=== PATIENT | female | born 1995 | race Caucasian/White ===

== ENCOUNTER 2016-12-15 19:13 | Inpatient (IN) | payer SELFPAY ==
[~2016-12-15] VITALS: Ht 172.7 cm; Wt 125.4 kg
[~2016-12-15 19:13] MED LIST: [UNRECOGNIZED DRUG - REMARK]
[2016-12-15 19:50] LABS: Urine Bilirubin Negative (Negative); Urine Blood TRACE /uL (Negative); Urine Color Yellow (Yellow); Urine Glucose Normal (Normal); Urine Ketone Negative (Negative); Urine Mucus FEW (None Seen); Urine Nitrite Negative (Negative); Urine RBC 8 /hpf (0 - 4); Urine Squamous Epithelial Cell FEW /hpf (<5); Urine Urobilinogen Normal (Negative)
[2016-12-15 20:05] LABS: Basophils # (auto) 0.1 uL; Basophils % (auto) 0.4 % (0.0-2.0); DEFINITIVE VIEW TRANSMISSION; Eosinophils # (auto) 0 uL; Eosinophils % (auto) 0.2 % (0.0-7.0); Hematocrit 41.1 % (36.0-46.0); Hemoglobin 13.6 g/dL (12.2-16.2); Lymphocytes # (auto) 2.3 uL; Lymphocytes % (auto) 10.6 % (10.0-50.0); Mean Corpuscular Hemoglobin 28.6 pg (28.0-32.0); Mean Corpuscular Hgb Conc. 33.1 g/dL (32.0-36.0); Mean Corpuscular Volume 86.4 fL (80.0-100.0); Monocytes # (auto) 2.2 uL; Monocytes % (auto) 10.2 % (0.0-12.0); Neutrophils # (auto) 17.1 uL; Neutrophils % (auto) 78.6 % (37.0-80.0); Platelet Count (auto) 421 10^3/uL (140-450); Red Cell Distribution Width 14.4 % (11.6-16.0); White Blood Cell 21.8 10^3/uL (4.4-10.8)
[2016-12-15 20:33] LABS: Albumin 4.2 g/dL (3.4-5.0); BUN/Creatinine Ratio 17.5; Bilirubin, Total 0.4 mg/dL (0.2-1.0); Calcium 9.1 mg/dL (8.5-10.1); Potassium 3.5 mmol/L (3.5-5.1); Total Protein 7.9 g/dL (6.4-8.2)
[2016-12-15] MEDS ORDERED: ONDANSETRON HCL 4 MG/2 ML VIAL IV ONE (23:45)
[2016-12-15] MEDS ORDERED: MORPHINE SULFATE 4 MG/ML SYRG IM ONE (23:45)
[2016-12-15] MEDS ORDERED: cefTRIAXone 1GM/50ML D5W 50 ML IV ONE (23:45)
[2016-12-15] MEDS: SODIUM CHLORIDE 0.9% 1,000 ML IV SCH (23:55)
[2016-12-16] VITALS (10 sets, daily range): BP systolic 98–130; BP diastolic 51–82
[2016-12-16] MEDS: MORPHINE SULFATE 4 MG/ML SYRG IV PRN ×2 (00:02→04:59)
[2016-12-16] MEDS: ONDANSETRON HCL 4 MG/2 ML VIAL IV PRN ×4 (00:03→20:16)
[2016-12-16] MEDS: cefTRIAXone 1GM/50ML D5W 50 ML IV SCH ×2 (00:03→23:19)
[2016-12-16 00:16] LABS: Prothrombin Time 10.9 sec (9.37-12.3)
[2016-12-16] MEDS: metroNIDAZOLE 500MG/100ML 100 ML IV SCH ×4 (02:31→21:41)
[2016-12-16] MEDS: SODIUM CHLORIDE 0.9% 1,000 ML IV SCH ×2 (06:13→21:52)
[2016-12-16 06:53] LABS: Basophils # (auto) 0.1 uL; Basophils % (auto) 0.5 % (0.0-2.0); DEFINITIVE VIEW TRANSMISSION; Eosinophils # (auto) 0 uL; Hematocrit 36.5 % (36.0-46.0); Hemoglobin 12.2 g/dL (12.2-16.2); Lymphocytes # (auto) 2.4 uL; Lymphocytes % (auto) 12.7 % (10.0-50.0); Mean Corpuscular Hemoglobin 28.9 pg (28.0-32.0); Mean Corpuscular Hgb Conc. 33.5 g/dL (32.0-36.0); Mean Corpuscular Volume 86.3 fL (80.0-100.0); Mean Platelet Volume 8.4 fL (7.4-10.4); Monocytes # (auto) 1.7 uL; Monocytes % (auto) 8.9 % (0.0-12.0); Neutrophils # (auto) 14.6 uL; Neutrophils % (auto) 77.9 % (37.0-80.0); Platelet Count (auto) 395 10^3/uL (140-450); Red Cell Distribution Width 14.2 % (11.6-16.0); White Blood Cell 18.8 10^3/uL (4.4-10.8)
[2016-12-16 07:08] LABS: Albumin 3.6 g/dL (3.4-5.0); Bilirubin, Total 0.8 mg/dL (0.2-1.0); Calcium 7.9 mg/dL (8.5-10.1); Potassium 3.5 mmol/L (3.5-5.1)
[2016-12-16] MEDS ORDERED: POVIDONE IODINE 10 % TOPICAL OINT 30GM TOP ONE (08:08)
[2016-12-16] MEDS ORDERED: MEPERIDINE HCL (50 MG/ML) 1 ML VIAL ONE (08:17)
[2016-12-16] MEDS ORDERED: fentaNYL CITRATE 100 MCG/2 ML VL ONE (08:17)
[2016-12-16] MEDS ORDERED: MIDAZOLAM HCL 1MG/1ML-2 ML VIAL ONE (08:18)
[2016-12-16] MEDS ORDERED: ceFAZolin 1GM/50ML D5W 50 ML IV ONE (08:56)
[2016-12-16] MEDS ORDERED: NEOSTIGMINE 1 MG/ML INJ (10mg/10ML VIAL) IV ONE (09:01)
[2016-12-16] MEDS ORDERED: ONDANSETRON HCL 4 MG/2 ML VIAL IV ONE ×2 (09:01→09:45)
[2016-12-16] MEDS ORDERED: GLYCOPYRROLATE 0.2 MG/ML 1ML VIAL IV ONE (09:01)
[2016-12-16] MEDS ORDERED: ROCURONIUM 10MG/ML 10ML VIAL IV ONE (09:20)
[2016-12-16] MEDS ORDERED: DEXAMETHASONE SOD PHOS 10MG/1ML VIAL INJ ONE (09:20)
[2016-12-16] MEDS ORDERED: PROPOFOL 10 MG/ML 20 ML IV ONE (09:20)
[2016-12-16] MEDS ORDERED: ePHEDrine SULFATE 50 MG/ML AMP IV PRN (09:45)
[2016-12-16] MEDS ORDERED: MIDAZOLAM HCL 1MG/1ML-2 ML VIAL IV PRN (09:45)
[2016-12-16] MEDS ORDERED: LABETALOL HCL 5 MG/ML 4ML SYRINGE IV PRN (09:45)
[2016-12-16] MEDS ORDERED: HYDROmorphone HCL 2 MG/ML VL IV PRN (09:45)
[2016-12-16] MEDS ORDERED: ACCU-CHEK COMFORT CURVE STRIP VI ONE (09:45)
[2016-12-16] MEDS ORDERED: hydrALAZINE HCL 20 MG/ML VL IV PRN (09:45)
[2016-12-16] MEDS: MORPHINE SULF INJ 2 MG/ML SYRINGE 1ML IV PRN ×2 (10:30→10:40)
[2016-12-16] MEDS: HYDROmorphone HCL 2 MG/ML VL IV PRN ×2 (13:51→20:16)
[2016-12-17 05:00] VITALS: BP 105/66
[2016-12-17] MEDS: metroNIDAZOLE 500MG/100ML 100 ML IV SCH ×2 (05:11→11:06)
[2016-12-17 06:01] LABS: Basophils # (auto) 0 uL; Basophils % (auto) 0.1 % (0.0-2.0); Eosinophils # (auto) 0 uL; Hematocrit 35.4 % (36.0-46.0); Hemoglobin 11.8 g/dL (12.2-16.2); Lymphocytes # (auto) 1.4 uL; Lymphocytes % (auto) 12.8 % (10.0-50.0); Mean Corpuscular Hgb Conc. 33.3 g/dL (32.0-36.0); Mean Platelet Volume 8.2 fL (7.4-10.4); Monocytes # (auto) 1.2 uL; Monocytes % (auto) 11.2 % (0.0-12.0); Neutrophils # (auto) 8.2 uL; Neutrophils % (auto) 75.9 % (37.0-80.0); Platelet Count (auto) 404 10^3/uL (140-450); Red Cell Distribution Width 14.2 % (11.6-16.0); White Blood Cell 10.8 10^3/uL (4.4-10.8)
[2016-12-17 06:29] LABS: BUN/Creatinine Ratio 15.3; Calcium 7.8 mg/dL (8.5-10.1); Magnesium 2.2 mg/dL (1.6-2.6); Potassium 3.7 mmol/L (3.5-5.1)
[2016-12-17 08:09] VITALS: BP_SYST 100; BP_DIAS 55; BP_DIAS 66
[2016-12-17] MEDS: ONDANSETRON HCL 4 MG/2 ML VIAL IV PRN ×2 (08:13→15:40)
[2016-12-17] MEDS: HYDROmorphone HCL 2 MG/ML VL IV PRN ×2 (08:13→15:40)
[2016-12-17] MEDS: SODIUM CHLORIDE 0.9% 1,000 ML IV SCH (11:06)
[2016-12-17 12:23] VITALS: BP 110/54
[2016-12-17] MEDS ORDERED: METR500T PO (12:38)
[2016-12-17] MEDS ORDERED: HYDR-4663 PO (12:38)
[2016-12-17] MEDS ORDERED: LEVO500T21 PO (12:38)
[2016-12-17 15:53] VITALS: BP 110/54
[2016-12-17 16:38] VITALS: BP 108/70
== END 2016-12-17 17:00 | disposition home or self-care (01) | DRG 854 ==
LOC: ER 19:21 → OVERFLOW 19:22 → WEST WING 23:57
PROVIDERS: ADMIT Family Medicine; ATTEND Internal Medicine
PROC: 0DTJ4ZZ Resection of Appendix, Percutaneous Endoscopic Approach (ICD-10-PCS; principal; 2016-12-16 09:05)
DX: A41.9 Sepsis, unspecified organism (principal); K35.80 Unspecified acute appendicitis; N39.0 Urinary tract infection, site not specified; Z68.41 Body mass index [BMI] 40.0-44.9, adult; E66.01 Morbid (severe) obesity due to excess calories; Z88.6 Allergy status to analgesic agent; Z88.8 Allergy status to other drugs, medicaments and biological substances; Z87.442 Personal history of urinary calculi; Z90.89 Acquired absence of other organs; Z83.3 Family history of diabetes mellitus; Z93.6 Other artificial openings of urinary tract status
CPT/HCPCS: 36415; 71010; 74176; 80048; 80053; 81001; 81025; 82150; 83690; 83735; 84702; 85025; 85610; 86850; 86900; 86901; 87040; 87086; 93005; J0690; J0696; J1100; J2250; J2405; J2704; J3490